=== PATIENT | male | born 1970 | race Caucasian/White ===

== ENCOUNTER 2023-08-10 19:18 | Emergency (ER) | payer BC ==
[~2023-08-10] VITALS: Ht 177.8 cm; Wt 107.0 kg
[2023-08-10 19:37] VITALS: BP_SYST 119; PULSE 95; RESP 16; TEMP 97.8; O2SAT 96
[2023-08-10] MEDS ORDERED: KETOROLAC TROMETHAMINE 60 MG/2 ML VIAL IM ONE (19:45)
[2023-08-10 20:33] LABS: INFLUENZA TYPE B NEGATIVE (NEGATIVE)
[2023-08-10 20:45] LABS: INFLUENZA TYPE A POSITIVE (NEGATIVE)
[2023-08-10] MEDS ORDERED: GUAI120L56 PO (20:49)
[2023-08-10] MEDS ORDERED: IBUP-1969 PO (20:49)
[2023-08-10] MEDS ORDERED: OSEL75CA PO (20:49)
[2023-08-10 21:03] VITALS: BP_SYST 119; PULSE 95; RESP 16; TEMP 97.8; O2SAT 96
== END 2023-08-10 21:03 | disposition home or self-care (01) ==
LOC: SED 19:18
DX: J10.1 Influenza due to other identified influenza virus with other respiratory manifestations (principal); I10 Essential (primary) hypertension; Z79.899 Other long term (current) drug therapy; Z20.822 Contact with and (suspected) exposure to COVID-19
CPT/HCPCS: 99284; 71045; 87426; 96372; 87804 ×2; J1885; 36415; 93005

== ENCOUNTER 2023-08-14 05:37 | Emergency (ER) | payer BC ==
[~2023-08-14 05:37] MED LIST: GUAI120L56 PO; IBUP-1969 PO; OSEL75CA PO
[2023-08-14] MEDS ORDERED: BENZ100C92 PO (06:52)
[2023-08-14] MEDS ORDERED: GUAI-723 PO (06:52)
[2023-08-14] MEDS ORDERED: AZIT-93 PO (06:52)
== END 2023-08-14 07:20 | disposition home or self-care (01) ==
LOC: SED 05:37
DX: R05.9 Cough, unspecified (principal); I10 Essential (primary) hypertension; Z79.899 Other long term (current) drug therapy
CPT/HCPCS: 71045; 99283